=== PATIENT | female | born 1985 | race American Indian/Alaskan Native ===

== ENCOUNTER 2021-07-24 08:00 | Emergency (ER) | payer MEDICAID ==
[2021-07-24 08:08] VITALS: BP 138/81
--- NOTE | 2021-07-24 08:47 | Emergency Department Report ---
ED Eye Problem HPI - General Chief complaint: Eye Problems Stated complaint: eye pains Time Seen by Provider: 07/24/21 08:15 Source: patient Mode of arrival: Ambulatory Limitations: No Limitations - History of Present Illness Initial comments: The patient was evaluated in the emergency department for symptoms described in the history of present illness. He/she was evaluated in the context of the global COVID-19 pandemic, which necessitated consideration that the patient might be at risk for infection with the virus that causes COVID-19. Institution al protocols and algorithms that pertain to the evaluation of patients at risk for COVID-19 are in a state of rapid change based on information released by regulatory bodies including the CDC and federal and state organizations. These policies and algorithms were followed during the patient's care in the emergency department. Please note that these policies, procedures and recommendations changed on a rapid basis. 36-year-old -[place] female presents to the emergency room complaining of right eye pain. Patient states that it started yesterday morning. She reports she is up-to-date on all her vaccines. She she denies any injury to her eye. She does admit that it is painful is watery discharge tearing constantly and has photophobia. Patient reports no known drug allergies and had taken Tylenol last night. MD chief complaint: eye pain, eye redness Onset/Timin -: days(s) Onset Description: awoke with symptoms Location: right eye If Injury: none Eye Symptoms: redness, pain, photophobia, other (Watery) Severity scale (0 -10): 4 If Pain, Quality: sharp Consistency: constant Associated Symptoms: none Treatments Prior to Arrival: none - Related Data Previous Rx's Medication Instructions Recorded Last Taken Type Amoxicillin [Trimox CAP] 500 mg PO Q8H #30 capsule 06/19/16 Unknown Rx Cetirizine HCl [ZyrTEC] 10 mg PO DAILY #20 capsule 06/19/16 Unknown Rx predniSONE [Deltasone] 20 mg PO QDAY #5 tab 06/19/16 Unknown Rx Naproxen 500 mg PO BID PRN #20 tablet 07/24/21 Unknown Rx Allergies Allergy/AdvReac Type Severity Reaction Status Date / Time No Known Allergies Allergy Unverified 06/18/16 21:06 ED Review of Systems ROS: Stated complaint: eye pains Other details as noted in HPI Comment: All other systems reviewed and negative ED Past Medical Hx - Past Medical History Previous Medical History?: No - Surgical History Past Surgical History?: No Additional Surgical History: - Social History Smoking Status: Never Smoker Substance Use Type: None - Medications Home Medications: Home Medications Medication Instructions Recorded Confirmed Last Taken Type Amoxicillin [Trimox CAP] 500 mg PO Q8H #30 capsule 06/19/16 Unknown Rx Cetirizine HCl [ZyrTEC] 10 mg PO DAILY #20 capsule 06/19/16 Unknown Rx predniSONE [Deltasone] 20 mg PO QDAY #5 tab 06/19/16 Unknown Rx Naproxen 500 mg PO BID PRN #20 tablet 07/24/21 Unknown Rx ED Physical Exam - General Limitations: No Limitations General appearance: alert, in no apparent distress - Head Head exam: Present: atraumatic, normocephalic - Eye Eye exam: Present: normal appearance - Expanded Eye Exam Expanded Eyelids: Normal Inspection: Right Pupils: Regular, Round: Right, Reactive: Right Sclera/Conjunctival: Injection: Right - ENT ENT exam: Present: mucous membranes moist - Neck Neck exam: Present: normal inspection - Respiratory Respiratory exam: Present: normal lung sounds bilaterally. Absent: respiratory distress - Cardiovascular Cardiovascular Exam: Present: regular rate, normal rhythm. Absent: systolic murmur, diastolic murmur, rubs, gallop - GI/Abdominal GI/Abdominal exam: Present: soft, normal bowel sounds - Extremities Exam Extremities exam: Present: normal inspection - Back Exam Back exam: Present: normal inspection - Neurological Exam Neurological exam: Present: alert, oriented X3 - Psychiatric Psychiatric exam: Present: normal affect, normal mood - Skin Skin exam: Present: warm, dry, intact, normal color. Absent: rash ED Course Vital Signs 07/24/21 08:05 Temperature 97.8 F Pulse Rate 83 Respiratory 18 Rate Blood Pressure 138/81 O2 Sat by Pulse 100 Oximetry Critical care attestation.: If time is entered above; I have spent that time in minutes in the direct care of this critically ill patient, excluding procedure time. ED Disposition Clinical Impression: Pain, eye, left Disposition: 01 HOME / SELF CARE / HOMELESS Is pt being admited?: No Does the pt Need Aspirin: No Condition: Stable Additional Instructions: Please take pain medication as needed. Is very important you follow-up with an acls specialist I have listed their information below for your convenience. Prescriptions: Naproxen 500 mg PO BID PRN #20 tablet PRN Reason: Pain , Severe (7-10) Referrals: [facility] [Provider Group] - 3-5 Days Forms: Work/School Release Form(ED) Time of Disposition: 08:32
== END 2021-07-24 08:37 | disposition home or self-care (01) ==
LOC: ED 08:00
DX: H57.11 Ocular pain, right eye (principal); Z98.890 Other specified postprocedural states; Z79.899 Other long term (current) drug therapy
CPT/HCPCS: 99282

== ENCOUNTER 2021-09-11 17:15 | Emergency (ER) | payer MEDICAID ==
--- NOTE | 2021-09-11 19:33 | XRay Report ---
XR ankle 3+V RT INDICATION / CLINICAL INFORMATION: fall. COMPARISON: None available. FINDINGS: BONES/JOINT(S): No acute fracture or subluxation. No significant degenerative changes. SOFT TISSUES: No significant abnormality. ADDITIONAL FINDINGS: None. Signer Name: Lito Melara MD Signed: 09/11/2021 7:29 PM Workstation Name: [id number]
--- NOTE | 2021-09-11 20:32 | Emergency Department Report ---
ED Lower Extremity HPI - General Chief Complaint: Extremity Injury, Lower Stated Complaint: right ankle Source: patient Mode of arrival: Ambulatory Limitations: No Limitations - History of Present Illness Initial Comments: Patient is a 36-year-old -[place] female with a history of morbid obesity who presented to the ED with complaint of acute onset persistent severe right ankle pain and swelling after she tripped and fell down the stairs after twisting her right ankle about 24 hours ago. Patient states that initially the pain was mild but about 12 hours ago she was unable to bear weight on the right ankle because of worsening pain and swelling. Patient states that any form of ambulation makes the pain worse. Patient denies numbness and tingling or weakness of right leg, dizziness, syncope, seizures, chest pain or shortness of breath, head or neck injuries, back pain, hip pain or knee pain and change in vision or headache. MD Complaint: ankle injury (Right ankle pain and swelling), fall -: Sudden, hour(s) (24) Injury: Ankle: Right (PAIN AND SWELLING) Type of Injury: eversion Place: home Severity: severe Severity scale (0 -10): 8 Improves With: nothing Worsens With: weight bearing, movement, palpation Context: fall, walking Associated Symptoms: swelling, able to partially bear weight. denies: numbness, tingling, unable to bear weight, ambulatory, other - Related Data Previous Rx's Medication Instructions Recorded Last Taken Type Amoxicillin [Trimox CAP] 500 mg PO Q8H #30 capsule 06/19/16 Unknown Rx Cetirizine HCl [ZyrTEC] 10 mg PO DAILY #20 capsule 06/19/16 Unknown Rx predniSONE [Deltasone] 20 mg PO QDAY #5 tab 06/19/16 Unknown Rx Naproxen 500 mg PO BID PRN #20 tablet 07/24/21 Unknown Rx Baclofen 20 mg PO Q12H PRN #24 tablet 09/11/21 Unknown Rx Ibuprofen [Motrin] 800 mg PO Q8HR PRN #30 tablet 09/11/21 Unknown Rx traMADoL [Ultram] 50 mg PO Q6HR PRN #12 tablet 09/11/21 Unknown Rx Allergies Allergy/AdvReac Type Severity Reaction Status Date / Time No Known Allergies Allergy Verified 09/11/21 19:06 ED Review of Systems ROS: Stated complaint: right ankle Other details as noted in HPI Constitutional: denies: chills, fever Eyes: denies: eye pain, eye discharge, vision change ENT: denies: ear pain, throat pain Respiratory: denies: cough, shortness of breath, wheezing Cardiovascular: denies: chest pain, palpitations Endocrine: no symptoms reported Gastrointestinal: denies: abdominal pain, nausea, diarrhea Genitourinary: denies: urgency, dysuria, discharge Musculoskeletal: joint swelling (right ankle), arthralgia (right ankle pain and swelling). denies: back pain Skin: denies: rash, lesions Neurological: denies: headache, weakness, paresthesias Psychiatric: denies: anxiety, depression Hematological/Lymphatic: denies: easy bleeding, easy bruising ED Past Medical Hx - Surgical History Additional Surgical History: - Social History Smoking Status: Never Smoker Substance Use Type: None - Medications Home Medications: Home Medications Medication Instructions Recorded Confirmed Last Taken Type Amoxicillin [Trimox CAP] 500 mg PO Q8H #30 capsule 06/19/16 Unknown Rx Cetirizine HCl [ZyrTEC] 10 mg PO DAILY #20 capsule 06/19/16 Unknown Rx predniSONE [Deltasone] 20 mg PO QDAY #5 tab 06/19/16 Unknown Rx Naproxen 500 mg PO BID PRN #20 tablet 07/24/21 Unknown Rx Baclofen 20 mg PO Q12H PRN #24 tablet 09/11/21 Unknown Rx Ibuprofen [Motrin] 800 mg PO Q8HR PRN #30 tablet 09/11/21 Unknown Rx traMADoL [Ultram] 50 mg PO Q6HR PRN #12 tablet 09/11/21 Unknown Rx ED Physical Exam - General Limitations: No Limitations General appearance: alert, in no apparent distress - Head Head exam: Present: atraumatic, normocephalic, normal inspection - Eye Eye exam: Present: normal appearance, PERRL, EOMI Pupils: Present: normal accommodation - ENT ENT exam: Present: normal exam, normal orophraynx, mucous membranes moist, TM's normal bilaterally, normal external ear exam - Neck Neck exam: Present: normal inspection, full ROM - Respiratory Respiratory exam: Present: normal lung sounds bilaterally. Absent: respiratory distress, wheezes, rales, rhonchi, stridor, chest wall tenderness, accessory muscle use, decreased breath sounds, prolonged expiratory - Cardiovascular Cardiovascular Exam: Present: regular rate, normal rhythm, normal heart sounds. Absent: systolic murmur, diastolic murmur, rubs, gallop - GI/Abdominal GI/Abdominal exam: Present: soft, normal bowel sounds. Absent: tenderness, gua rding, rebound, hyperactive bowel sounds, hypoactive bowel sounds, organomegaly, bruit - Extremities Exam Extremities exam: Present: normal inspection, tenderness (Palpable severe right ankle tenderness with mild swelling and limited range of motion due to pain), normal capillary refill, joint swelling (Mild right ankle swelling and severe pain). Absent: full ROM (limited range of motion of right ankle due to pain), pedal edema, calf tenderness - Back Exam Back exam: Present: normal inspection, full ROM. Absent: tenderness, CVA tenderness (R), CVA tenderness (L), muscle spasm, paraspinal tenderness, vertebral tenderness - Neurological Exam Neurological exam: Present: alert, oriented X3, CN II-XII intact, normal gait, reflexes normal - Psychiatric Psychiatric exam: Present: normal affect, normal mood - Skin Skin exam: Present: warm, dry, intact, normal color. Absent: rash ED Course Vital Signs 09/11/21 19:05 Temperature 97.9 F Pulse Rate 84 Respiratory 16 Rate Blood Pressure 127/88 O2 Sat by Pulse 100 Oximetry ED Lower Extremity MDM - Radiology Data Radiology results: report reviewed, image reviewed [address] [address] XRay Report Signed Patient: TIFFANIE MCCULLOUGH MR#: [id number] : 1985 Acct:[id number] Age/Sex: 36 / F ADM Date: 09/11/21 Loc: ED Attending Dr: Ordering Physician: GABRIELE CALLEJAS MD Date of Service: 09/11/21 Procedure(s): XR ankle 3+V RT Accession Number(s): [id number] cc: ED MD BRITTA Fluoro Time In Minutes: XR ankle 3+V RT INDICATION / CLINICAL INFORMATION: fall. COMPARISON: None available. FINDINGS: BONES/JOINT(S): No acute fracture or subluxation. No significant degenerative changes. SOFT TISSUES: No significant abnormality. ADDITIONAL FINDINGS: None. Signer Name: Lito Melara MD Signed: 09/11/2021 7:29 PM Workstation Name: [id number] Transcribed By: ALIVIA Dictated By: Lito Melara MD Electronically Authenticated By: Lito Melara MD Signed Date/Time: 09/11/211928 DD/ 27 TD/TT: - Medical Decision Making This is a 36-year-old -[place] female with a history of morbid obesity who presented to the ED with complaint of acute onset persistent severe right ankle pain and swelling after she tripped and fell down the stairs after twisting her right ankle about 24 hours ago. Patient states that initially the pain was mild but about 12 hours ago she was unable to bear weight on the right ankle because of worsening pain and swelling. Patient states that any form of ambulation makes the pain worse. In the ED, patient is alert and oriented x3 and is not in any distress. Patient however appears to be in pain. Patient was treated for pain in the ED and right ankle x-ray showed no acute fractures or subluxations of the right ankle joint. Patient symptoms are likely due to musculoskeletal muscle strain or muscle sprain. Patient right ankle was splinted with Misbah wrap and the patient also fitted with crutches to aid in ambulation. On reevaluation, patient's pain is well controlled medication. Patient is neurovascularly intact after application of the Misbah wrap splint. Patient was therefore discharged home on pain medications and advised to follow- up with her primary care physician in 7 to 10 days for reevaluation or return to the ED immediately if symptoms get worse. - Differential Diagnosis Ankle fracture; ankle sprain; muscle strain Critical care attestation.: If time is entered above; I have spent that time in minutes in the direct care of this critically ill patient, excluding procedure time. ED Disposition Clinical Impression: Severe sprain of right ankle Qualifiers: Encounter type: initial encounter Qualified Code(s): S93.401A - Sprain of unspecified ligament of right ankle, initial encounter Muscle strain of right ankle Qualifiers: Encounter type: initial encounter Qualified Code(s): S96.911A - Strain of unspecified muscle and tendon at ankle and foot level, right foot, initial encounter Disposition: HOME / SELF CARE / HOMELESS Is pt being admited?: No Does the pt Need Aspirin: No Condition: Stable Instructions: Ankle Sprain, [id number], Muscle Strain, [id number] Additional Instructions: Right ankle x-ray showed no acute fractures or subluxations. Therefore take medication with food, drink plenty of fluids and follow-up with your primary care physician in 7 to 10 days for reevaluation. Return to the ED immediately if symptoms get worse. Prescriptions: Baclofen 20 mg PO Q12H PRN #24 tablet PRN Reason: muscle spasm Ibuprofen [Motrin] 800 mg PO Q8HR PRN #30 tablet PRN Reason: Pain , Severe (7-10) traMADoL [Ultram] 50 mg PO Q6HR PRN #12 tablet PRN Reason: Pain Referrals: [facility] [Provider Group] - 7-10 days Time of Disposition: 20:29 Print Language: BHUTANESE
[2021-09-11] MEDS ORDERED: ONDANSETRON 4 MG ODT TAB PO ONE (20:42)
[2021-09-11] MEDS ORDERED: oxyCODONE /ACETAMINOPHEN 5-325MG TAB PO ONE (20:42)
[2021-09-11] MEDS ORDERED: IBUPROFEN 600 MG TAB PO ONE (20:42)
[2021-09-11 22:55] VITALS: BP 120/68
== END 2021-09-11 21:00 | disposition home or self-care (01) ==
LOC: ED 17:15
DX: S93.401A Sprain of unspecified ligament of right ankle, initial encounter (principal); S96.911A Strain of unspecified muscle and tendon at ankle and foot level, right foot, initial encounter; W19.XXXA Unspecified fall, initial encounter; Y93.89 Activity, other specified; Y92.89 Other specified places as the place of occurrence of the external cause; Y99.8 Other external cause status
CPT/HCPCS: 99283; J3490; Q0162